=== PATIENT | male | born 1995 | race African-American/Black ===

== ENCOUNTER 2021-10-06 00:42 | Inpatient (IN) | payer BC, SELFPAY ==
[2021-10-06 00:52] VITALS: BP 145/92; PULSE 89; RESP 16; TEMP 36.8; O2SAT 99
[2021-10-06 00:55] VITALS: BMI 28.8
[2021-10-06 06:00] VITALS: RESP 18
[2021-10-06 07:44] LABS: Alanine Aminotransferase 32 U/L (0-41); Albumin Level 3.7 g/dL (3.5-5.2); Alkaline Phosphatase 60 IU/L (40-130); Anion Gap 15.3 (5-19); Aspartate Amino Transferase 15 U/L (0-40); Blood Urea Nitrogen 14 mg/dL (6-20); Calcium 8.5 mg/dL (8.5-10.5); Carbon Dioxide 24 mmol/L (22-29); Chloride 104 mmol/L (98-107); Creatine Phosphokinase 198 U/L (39-308); Globulin 2.7 g/dL (1.3-4.6); Glomerular Filtration Rate 195.6 mL/min (90-130); Glucose 122 mg/dL (65-115); Osmolality Calculated 290 mOsm/kg (285-295); Potassium 4.3 mmol/L (3.5-5.1); Sodium 139 mmol/L (136-145); Total Bilirubin 0.3 mg/dL (0.15-1.2); Total Protein 6.4 g/dL (6.6-8.7)
--- NOTE | 2021-10-06 10:44 | PC.NURSE ---
[facility] # [place] [phone] work [phone]
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
[2021-10-06 14:00] VITALS: BP 130/84; PULSE 97; RESP 20; TEMP 36.8; O2SAT 98
[2021-10-06] MEDS: paliperidone ER 6 mg Tablet PO (14:11)
[2021-10-06] MEDS: cetylpyridinium Lozenge 1 EACH MUCOUS MEM (14:50)
[2021-10-06 22:00] VITALS: BP 148/88; PULSE 128; RESP 18; TEMP 37.1; O2SAT 97
[2021-10-06] MEDS: hyDROXYzine 25 mg Capsule 50 MG PO (22:23)
[2021-10-06] MEDS: trazodone 50 mg Tablet PO (22:23)
--- NOTE | 2021-10-06 22:26 | PC.NURSE ---
PRN Administration: Patient complains of insomnia, given Hydroxyzine 50mg PO, and Trazodone 50mg PO
--- NOTE | 2021-10-06 23:33 | PC.NURSE ---
PRN Adminstration: Patient continues to complain of insomnia. 2nd dose of PRN trazodone 50mg PO given as ordered.
[2021-10-07 06:00] VITALS: BP 137/88; PULSE 127; RESP 18; TEMP 37.1; O2SAT 96
[2021-10-07] MEDS: acetaminophen 325 mg Tablet 650 MG PO ×2 (06:30→13:44)
[2021-10-07] MEDS: paliperidone ER 6 mg Tablet PO (08:31)
[2021-10-07 14:00] VITALS: BP 127/81; PULSE 73; RESP 18; TEMP 36.7; O2SAT 98
--- NOTE | 2021-10-07 15:56 | P.NPUPN_ITS ---
Subjective NPU Subjective: Interval history: Patient presented today reporting that he is having some drooling related to the Invega. That is notable by this typewriter repairer. We discussed him taking his as needed Cogentin to see if that is effective and then we can use that as a ending dose if needed as he is reporting that he is feeling a little more with it on the medication. He also is trying to understand how to navigate the system. He reports that he lives in his own house that he established by the job he had for the last several years but that these events are rendering it hard to impossible to work and he needs to know how to engage in services. We agreed to begin with making sure that he has Medicaid to manage his medication and illness and building from there. Mental Status Exam MSE Comments: This is a well-nourished, well-developed, male, with shoulder length dreads, with hospital scrubs on, with limited grooming, and eye contact. Clear drooling occurring. No abnormal movements except for significant psychomotor retardation. Cooperative with exam in no acute distress. Speech was decreased rate and volume. Mood described as okay; affect subdued. Thought process, organized. Thought content: patient denied any suicidal or homicidal ideation, there were no delusions reported or noted, patient denied any auditory or visual hallucinations. Attention, concentration, and memory appear intact but were not formally tested. He is alert and oriented times three. Insight and judgment are limited, and impulse control limited. Vitals/I&O/Wt Last Vital Signs Temp 98.1 F 10/07/21 14:00 Pulse 73 10/07/21 14:00 Resp 18 10/07/21 14:00 BP 127/81 10/07/21 14:00 Pulse Ox 98 10/07/21 14:00 Data NPU : 10/06/21 07:07 A&P Additional A&P Information (1) Schizophrenia: (2) Cannabis abuse: Additional A&P Information This is a 26-year-old, male, with recent history of psychosis with question of schizophrenia, versus bipolar disorder, who presents reporting he had stopped the Invega which had helped and endorsed an openness to restart it. RECOMMENDATION AND PLAN: 1. Continue current medication. Except restarted Invega 6 mg po q daily and endorsed considering the injection before discharge. Encourage Cogentin 1 mg to see if it will assist in managing the EPS. 2. Encourage individual, group, and milieu therapy. 3. Continue q-15 minute checks for safety. 4. Encourage sober living treatment after discharge, at the highest level of care, to which he is willing to commit. Involuntary Hold Information 96 Hour Hold: 96 Hour Involuntary Admission: No Attestations NPU Medical Necessity Statement*: Inpatient hospitalization is medically necessary and the clinically appropriate intervention, at this time. We will monitor medications and make changes as indicated. Likely length of stay is 2-4 days. Coding Level of Care Code Acute Weatherization Technician for Maxime Hansen
[2021-10-07] MEDS: benztropine 1 mg Tablet PO (18:01)
[2021-10-07 20:28] VITALS: BP 123/81; PULSE 83; RESP 16; TEMP 36.7; O2SAT 98
[2021-10-07] MEDS: trazodone 50 mg Tablet PO (21:09)
--- NOTE | 2021-10-07 21:46 | PC.NURSE ---
Patient was started on Cogentin 1mg BID due to excess salivation. Upon PM assessment patient continues to experience excessive salivation
--- NOTE | 2021-10-07 21:55 | PC.NURSE ---
Trazodone 50 mg PO given for sleep. Adequate results patient continues to Cat nap .
[2021-10-08 05:33] VITALS: BP 123/81; PULSE 83; RESP 16; TEMP 36.7; O2SAT 98
[2021-10-08] MEDS: paliperidone ER 6 mg Tablet PO (08:03)
[2021-10-08] MEDS: hyDROXYzine 25 mg Capsule 50 MG PO (08:03)
--- NOTE | 2021-10-08 08:03 | PC.NURSE ---
PATIENT C/O ANXIETY. VISTARIL 50MG ADMINISTERED. WILL MONITOR FOR DRUG EFFECTIVENESS
--- NOTE | 2021-10-08 09:30 | PC.NURSE ---
PATIENT REPORTS HE FEELS LESS ANXIOUS AFTER TAKING THE VISTARIL. WILL CONTINUE TO MONITOR, SUPPORT AND REDIRECT NEEDED.
[2021-10-08] MEDS: benztropine 1 mg Tablet PO (09:39)
[2021-10-08] MEDS: cetylpyridinium Lozenge 1 EACH MUCOUS MEM (10:47)
[2021-10-08 14:00] VITALS: BP 132/79; PULSE 82; RESP 20; TEMP 36.8; O2SAT 97
--- NOTE | 2021-10-08 18:32 | P.NPUPN_ITS ---
Subjective NPU Subjective: Interval history: Patient presents today continue to have future oriented especially surrounding how to manage his life with a new concerns of illness. We talked about disability as well as FMLA options of his current job. Took about his medication which is managed better with Cogentin. We discussed the rhythm at the time of considering getting the long-acting injectable tomorrow. We also discussed his mother's plan to pick him up on Tuesday versus if there is a way we can get him out of here sooner. We agreed that we would connect with the treatment team tomorrow and figure out a reasonable discharge plan. Mental Status Exam MSE Comments: This is a well-nourished, well-developed, male, with shoulder length dreads, with hospital scrubs on, with limited grooming, and eye contact. Decrease in drooling intervention. No abnormal movements except for psychomotor retardation. Cooperative with exam in no acute distress. Speech was decreased rate and volume. Mood described as okay; affect subdued. Thought process, organized. Thought content: patient denied any suicidal or homicidal ideation, there were no delusions reported or noted, patient denied any auditory or visual hallucinations. Attention, concentration, and memory appear intact but were not formally tested. He is alert and oriented times three. Insight and judgment are limited, and impulse control limited. Vitals/I&O/Wt Last Vital Signs Temp 98.6 F 10/08/21 20:28 Pulse 85 10/08/21 20:28 Resp 17 10/08/21 20:28 BP 128/87 10/08/21 20:28 Pulse Ox 97 10/08/21 20:28 Data NPU : 10/06/21 07:07 A&P Additional A&P Information (1) Schizophrenia: (2) Cannabis abuse: Additional A&P Information This is a 26-year-old, male, with recent history of psychosis with question of schizophrenia, versus bipolar disorder, who presents reporting he had stopped the Invega which had helped and endorsed an openness to restart it. RECOMMENDATION AND PLAN: 1. Continue current medication. Except restarted Invega 6 mg po q daily and endorsed considering the injection before discharge. Started Cogentin 1 mg p.o. twice daily for the drooling/EPS. 2. Encourage individual, group, and milieu therapy. 3. Continue q-15 minute checks for safety. 4. Encourage sober living treatment after discharge, at the highest level of care, to which he is willing to commit. Involuntary Hold Information 96 Hour Hold: 96 Hour Involuntary Admission: No Attestations NPU Medical Necessity Statement*: Inpatient hospitalization is medically necessary and the clinically appropriate intervention, at this time. We will monitor medications and make changes as indicated. Likely length of stay is 1-3 days. Coding Level of Care Code Acute Party Host/Hostess for Maxime Hansen
[2021-10-08 20:28] VITALS: BP 128/87; PULSE 85; RESP 17; TEMP 37; O2SAT 97
[2021-10-08] MEDS: trazodone 50 mg Tablet PO (20:49)
[2021-10-08] MEDS: diphenhydrAMINE 50 mg Capsule PO (20:50)
[2021-10-09 05:38] VITALS: BP 128/87; PULSE 85; RESP 17; TEMP 37; O2SAT 97
[2021-10-09] MEDS: paliperidone ER 6 mg Tablet PO (10:23)
[2021-10-09 14:00] VITALS: BP 124/79; PULSE 78; RESP 17; TEMP 36.7; O2SAT 98
--- NOTE | 2021-10-09 15:38 | W.PM.NPUPNS ---
Subjective NPU Subjective: Interval history: Patient presents today reporting that he is feeling optimistic about the plan. We discussed the risk benefits and alternatives of starting the injection of Invega and he understood and agreed to proceed as is documented in this note. He was able to connect with his family and they are open to picking him up tomorrow. We discussed continuing the Cogentin for his EPS symptoms and a reports he is eating and sleeping better with the trazodone. Mental Status Exam MSE Comments: This is a well-nourished, well-developed, male, with shoulder length dreads, with hospital scrubs on, with adequate grooming, and eye contact. No notable drooling. No abnormal movements except for resolving mild psychomotor retardation. Cooperative with exam in no acute distress. Speech was more normal rate and volume. Mood described as better; affect less subdued. Thought process, organized. Thought content: patient denied any suicidal or homicidal ideation, there were no delusions reported or noted, patient denied any auditory or visual hallucinations. Attention, concentration, and memory appear intact but were not formally tested. He is alert and oriented times three. Insight and judgment are improving, and impulse control improving. Vitals/I&O/Wt Last Vital Signs Temp 98.0 F 10/09/21 14:00 Pulse 78 10/09/21 14:00 Resp 17 10/09/21 14:00 BP 124/79 10/09/21 14:00 Pulse Ox 98 10/09/21 14:00 Data NPU : 10/06/21 07:07 A&P Additional A&P Information (1) Schizophrenia: (2) Cannabis abuse: Additional A&P Information This is a 26-year-old, male, with recent history of psychosis with question of schizophrenia, versus bipolar disorder, who presents reporting he had stopped the Invega which had helped and endorsed an openness to restart it. RECOMMENDATION AND PLAN: 1. Continue current medication. Except restarted Invega 6 mg po q daily and endorsed considering the injection before discharge. Started Cogentin 1 mg p.o. twice daily for the drooling/EPS. 2. Encourage individual, group, and milieu therapy. 3. Continue q-15 minute checks for safety. 4. Encourage sober living treatment after discharge, at the highest level of care, to which he is willing to commit. Involuntary Hold Information 96 Hour Hold: 96 Hour Involuntary Admission: No Attestations NPU Medical Necessity Statement*: Inpatient hospitalization is medically necessary and the clinically appropriate intervention, at this time. We will monitor medications and make changes as indicated. Likely length of stay is 1-2 days. Coding Level of Care Code Acute Web Marketing Coordinator for Maxime Hansen
[2021-10-09] MEDS: trazodone 50 mg Tablet PO (20:47)
[2021-10-09 20:59] VITALS: BP 126/82; PULSE 94; RESP 16; O2SAT 98
--- NOTE | 2021-10-10 03:12 | PC.NURSE ---
Patient received trazodone for insomnia. It was effective.
[2021-10-10 06:00] VITALS: BP 126/82; PULSE 94; RESP 16; TEMP 36.7; O2SAT 98
[2021-10-10 06:46] VITALS: BP 126/82; PULSE 94; RESP 16; TEMP 36.7; O2SAT 98
[2021-10-10] MEDS: paliperidone ER 6 mg Tablet PO (08:41)
[2021-10-10 14:00] VITALS: BP 120/80; PULSE 108; RESP 17; TEMP 36.9; O2SAT 98
--- NOTE | 2021-10-10 14:19 | P.NPUDS_ITS ---
Diagnoses at Discharge Discharge Diagnosis (1) Schizophrenia: Status: Acute (2) Cannabis abuse: Status: Acute Reason for Visit Reason for Visit: Bi polar VS schizophrenia Hospital Course Hospital Course He slowly acclimated to the individual, group and milieu therapies provided. A clear history of psychosis was present and improvement on antipsychotics has been noted. We initiated Invega with a very positive response but with notable EPS/doing. Cogentin was started and titrated to 1 mg twice daily with a as needed dose. He was placed on the Invega Sustenna and given his first injection. He had document and was able to contract for safety outside the hospital prior to discharge. At the outside hospital, patient had routine laboratory studies which were within normal limits except for few outliers. Additionally there was a general medical evaluation which was also within normal limits and revealed no new acute processes. Discharge Summary: At the time of discharge, lethality was denied and psychosis was resolving. Mood and anxiety were well managed. Patient endorsed a plan to avoid all drugs of abuse and follow-up with the aftercare recommendations of the treatment team. Patient was evaluated and deemed to be absent credible lethality, and had achieved the maximum benefit from an inpatient hospitalization, so was discharged. Involuntary Hold Information 96 Hour Hold: 96 Hour Involuntary Admission: No Mental Status Exam MSE Comments: This is a well-nourished, well-developed, male, with shoulder length dreads, with hospital scrubs on, with adequate grooming, and eye contact.? No notable drooling. No abnormal movements except for resolving mild psychomotor retardation. Cooperative with exam in no acute distress. Speech was more normal rate and volume. Mood described as better; affect less subdued. Thought process, organized. Thought content: patient denied any suicidal or homicidal ideation, there were no delusions reported or noted, patient denied any auditory or visual hallucinations. Attention, concentration, and memory appear intact but were not formally tested. He is alert and oriented times three. Insight and judgment are improving, and impulse control improving. Discharge Data Vitals: Last Vital Signs Temp 98.0 F 10/10/21 06:46 Pulse 94 10/10/21 06:46 Resp 16 10/10/21 06:46 BP 126/82 10/10/21 06:46 Pulse Ox 98 10/10/21 06:46 Discharge Plan Discharge Patient Disposition: Home Condition: Stable Prescriptions: New trazodone 50 mg Tablet 50 mg PO BEDTIME PRN (Reason: Insomnia) 30 Days Qty: 30 1RF benztropine 1 mg Tablet 1 mg PO BID 30 Days Qty: 90 1RF Rx Instructions: And 1 tab daily as needed Invega Sustenna 156 mg/mL syringe 156 mg IM Q30D 30 Days Qty: 1 2RF Rx Instructions: Next injection IM deltoid 10/15/2021. Following injection IM in 30 days Discharge Orders: Discharge Order (Routine); Ordered 10/10/21 Ordered By: Luis Thornton Referrals: [facility] Behavioral Health [Other] - 10/15/21 3:00 pm (Dr Aquino followup in person.) Discharge Diet: Regular Discharge Activity: Resume usual activity Patient Instructions: Opioid Safety Discharge Attestations NPU Time Spent in Discharge Care*: less than 30 min Specific Discharge Activities: Specific discharge activities: educating patie nt, discussing with nurse case management/social workers/dc planners, documenting/other paperwork and evaluating patient/reviewing data Coding Level of Care Code Acute Chg FW DC note Diagnoses Schizophrenia F20.9 Cannabis abuse F12.10
[2021-10-10 15:42] VITALS: BP 120/80; PULSE 108; RESP 17; TEMP 36.9; O2SAT 98
== END 2021-10-10 19:45 | disposition home or self-care (01) | DRG 885 ==
PROVIDERS: Admitting Provider Psychiatry & Neurology Psychiatry; Visit Provider Psychiatry & Neurology Psychiatry
DX: F20.9 Schizophrenia, unspecified (principal); T43.596A Underdosing of other antipsychotics and neuroleptics, initial encounter; Z91.128 Patient's intentional underdosing of medication regimen for other reason; F17.210 Nicotine dependence, cigarettes, uncomplicated; F12.10 Cannabis abuse, uncomplicated
CPT/HCPCS: 36415; 80053; 82550; 97150; 97165; Q0163